=== PATIENT | male | born 1985 | race Caucasian/White ===

== ENCOUNTER → 2020-05-08 11:21 | Outpatient (BNVA) | payer OTHER, SELFPAY | PROVIDERS: Family Provider Family Medicine; PCP Family Medicine; Visit Provider Emergency Medicine | DX: I10 Essential (primary) hypertension (principal); F10.10 Alcohol abuse, uncomplicated | CPT/HCPCS: 80061; 84443 ==

== ENCOUNTER → 2022-11-17 13:28 | Outpatient (BNVA) | payer OTHER, SELFPAY | PROVIDERS: Family Provider Family Medicine; PCP Family Medicine; Visit Provider Student in an Organized Health Care Education/Training Program | DX: S52.391A Other fracture of shaft of radius, right arm, initial encounter for closed fracture (principal); W17.89XA Other fall from one level to another, initial encounter | CPT/HCPCS: 73090 ==

== ENCOUNTER → 2022-12-01 07:51 | Outpatient (BNVA) | payer OTHER, SELFPAY | PROVIDERS: Family Provider Family Medicine; PCP Family Medicine; Visit Provider Student in an Organized Health Care Education/Training Program | DX: S52.301A Unspecified fracture of shaft of right radius, initial encounter for closed fracture; X58.XXXA Exposure to other specified factors, initial encounter | CPT/HCPCS: 73090 ==

== ENCOUNTER → 2022-12-11 10:42 | Outpatient (BNVA) | payer OTHER, SELFPAY | PROVIDERS: Family Provider Family Medicine; PCP Family Medicine; Visit Provider Student in an Organized Health Care Education/Training Program | DX: S52.301A Unspecified fracture of shaft of right radius, initial encounter for closed fracture; X58.XXXA Exposure to other specified factors, initial encounter | CPT/HCPCS: 73090 ==

== ENCOUNTER → 2022-12-25 09:50 | Outpatient (BNVA) | payer OTHER, SELFPAY | PROVIDERS: Family Provider Family Medicine; PCP Family Medicine; Visit Provider Nurse Practitioner Family | DX: S52.301A Unspecified fracture of shaft of right radius, initial encounter for closed fracture; X58.XXXA Exposure to other specified factors, initial encounter | CPT/HCPCS: 73090 ==